=== PATIENT | male | born 1960 | race Caucasian/White ===

== ENCOUNTER 2017-11-01 07:45 | Outpatient (CLI) | payer BC ==
--- NOTE | 2017-11-01 10:19 | ULT ---
ULTRASOUND ABDOMEN COMPLETE: HISTORY: 57-year-old male with elevated liver enzymes. FINDINGS: The gallbladder has normal wall thickness and has no evidence of gallstones or sludge. The hepatic e chogenicity is diffusely increased, consistent with fatty liver. The kidneys have normal echogenicit y, and there is no hydronephrosis. There is no splenomegaly. No free fluid is identified. The infe rior vena cava is visualized. The pancreas and abdominal aorta are obscured by bowel gas. There is no biliary dilation. The common duct caliber is 3 mm. IMPRESSION: 1) Hepatic steatosis. 2) No other pathology identified. 3) Aorta and pancreas are obscured by bowel gas. jn POS: CET
== END 2017-11-01 07:46 | disposition home or self-care (01) ==
LOC: ULT 07:45
PROVIDERS: ATTEND Family Medicine
DX: R74.8 Abnormal levels of other serum enzymes (principal); K76.0 Fatty (change of) liver, not elsewhere classified
CPT/HCPCS: 76700

== ENCOUNTER 2018-01-10 13:18 | Outpatient (CLI) | payer BC ==
--- NOTE | 2018-01-10 14:58 | ULT ---
RENAL ULTRASOUND: HISTORY: Hematuria. COMPARISON: CT abdomen/pelvis 10/02/06. TECHNIQUE: Multiplanar, french scale, and color Doppler images were obtained in a renal ultrasound. FINDINGS: The kidneys are normal in echogenicity without hydronephrosis. There are echogenic foci in the left kidney which do not demonstrate shadowing and may represent an interface between the hilar region, th e kidney, and the cortex. The kidneys measure 11.4 and 13.0 cm in length on the right and left, resp ectively. The urinary bladder is unremarkable. IMPRESSION: No significant renal abnormality. POS: ELSIE
== END 2018-01-10 13:19 | disposition home or self-care (01) ==
LOC: ULT 13:18
PROVIDERS: ATTEND Family Medicine
DX: R31.9 Hematuria, unspecified (principal)
CPT/HCPCS: 76770; 87086

== ENCOUNTER 2021-01-13 10:02 | Outpatient (CLI) | payer BC | END 2021-01-13 10:03 | disposition home or self-care (01) | LOC: BICULT 10:02 | PROVIDERS: ATTEND Family Medicine | DX: R31.29 Other microscopic hematuria (principal) | CPT/HCPCS: 76770 ==

== ENCOUNTER 2021-09-23 10:24 | Outpatient (CLI) | payer BC | END 2021-09-23 10:25 | disposition home or self-care (01) | LOC: BICCT 10:24 | PROVIDERS: ATTEND Urology | DX: R31.29 Other microscopic hematuria (principal); N13.30 Unspecified hydronephrosis; N28.89 Other specified disorders of kidney and ureter | CPT/HCPCS: 74176 ==

== ENCOUNTER 2021-10-06 11:40 | Outpatient (CLI) | payer BC ==
[2021-10-06 14:00] LABS: Anion Gap 13 mmol/L (10-20); BUN (Urea Nitrogen) 21 mg/dL (8.4-25.7); Calc. Creatinine Clearance 0 mL/min (70-130); Calcium 9.4 mg/dL (7.8-10.44); Carbon Dioxide 25 mmol/L (23-31); Chloride 105 mmol/L (98-107); Glucose 87 mg/dL (80-115); Potassium 4.7 mmol/L (3.5-5.1); Sodium 138 mmol/L (136-145)
[2021-10-06 20:33] LABS: SARS-CoV-2 PCR by NAA Not Detected (NotDetected)
== END 2021-10-06 11:41 | disposition home or self-care (01) ==
LOC: LABBT 11:40
PROVIDERS: ATTEND Urology
DX: Z01.818 Encounter for other preprocedural examination (principal); N20.1 Calculus of ureter; Z20.822 Contact with and (suspected) exposure to COVID-19
CPT/HCPCS: 80048; 93005; 93010; U0003; U0005

== ENCOUNTER 2022-11-23 09:00 | Inpatient (IN) | payer BC ==
[2022-11-23 11:02] LABS: Hemoglobin 14.4 g/dL (13.5-17.5); Mean Corpuscular Hemoglobin 28.9 pg (27.0-33.0); Mean Corpuscular Volume 87.6 fl (81.2-95.1); Mean Platelet Volume 10.1 fl (7.4-10.4); Platelet Count 191 10x3/uL (150-450); RBC Distribution Width 14.1 % (11.5-14.5); Red Blood Cell (RBC) Count 4.99 10x6/uL (4.32-5.72)
[2022-11-23 11:13] LABS: Anion Gap 14 mmol/L (10-20); BUN (Urea Nitrogen) 16 mg/dL (8.4-25.7); Calc. Creatinine Clearance 0 mL/min (70-130); Calcium 9.8 mg/dL (7.8-10.44); Carbon Dioxide 25 mmol/L (23-31); Chloride 106 mmol/L (98-107); Estimated GFR 94; Glucose 111 mg/dL (80-115); Potassium 4.8 mmol/L (3.5-5.1); Sodium 140 mmol/L (136-145)
[2022-11-24] MEDS ORDERED: PHENYLEPHRINE-NS 100 MCG/ML 10 ML SYRINGE ONE (06:33)
[2022-11-24] MEDS ORDERED: Albumin 5% 500 ML ONE (06:33)
[2022-11-24] MEDS ORDERED: Heparin 10,000 UNITS/1 ML VIAL 30,000 UNITS in Sodium Chloride 0.9% 1,000 ML FS SCH (07:00)
[2022-11-24] MEDS ORDERED: Midazolam HCl 5 mg/5 ml Vial ONE (07:08)
[2022-11-24] MEDS ORDERED: Aminocaproic Acid 5 GM/20 ML VIAL ONE (07:08)
[2022-11-24] MEDS ORDERED: Insulin Regular 300 UNITS/3 ML VIAL ONE (07:08)
[2022-11-24] MEDS ORDERED: Rocuronium Bromide 50 MG/5 ML VIAL ONE (07:08)
[2022-11-24] MEDS ORDERED: Norepinephrine 4 MG/4 ML VIAL ONE (07:08)
[2022-11-24] MEDS ORDERED: Fentanyl 250 MCG/5 ML VIAL ONE (07:08)
[2022-11-24] MEDS ORDERED: Sodium Chloride 0.9% 100 ML ONE (08:05)
[2022-11-24] MEDS ORDERED: CEFAZOLIN 2 GM VIAL ONE (08:05)
[2022-11-24] MEDS ORDERED: Lidocaine 1% PF 5 ML VIAL ONE (08:40)
[2022-11-24] MEDS ORDERED: Rocuronium Bromide 10 MG/ML (10ML VIAL) ONE (08:40)
[2022-11-24] MEDS ORDERED: PROPOFOL 200 MG/20 ML VIAL ONE (08:40)
[2022-11-24] MEDS ORDERED: Esmolol 100 MG/10 ML VIAL ONE (08:40)
[2022-11-24] MEDS ORDERED: niCARdipine 25 MG/10 ML SDV ONE (09:51)
[2022-11-24 12:25] LABS: Actual Bicarbonate (HCO3a) 22.8 mEq/L (22-28); Base Excess (BEa) -2.6 mEq/L (-2.0 to +3.0); CO2 Tension 41.9 mmHg (35.0-45.0); Calcium, Ionized (arterial) 1.14 mmol/L (1.12-1.30); Hemoglobin (Hb) 15.1 g/dL (14.0-18.0); O2 Tension (PaO2), arterial 80.8 mmHg (> 80.0); Potassium - ABG Lab 5.21 mmol/L (3.70-5.30); pH, Arterial 7.35 (7.35-7.45)
[2022-11-24 12:26] LABS: ALV-art Gradient 294.625 mmHg (0-20); Puncture Site Arterial Line
[2022-11-24] MEDS ORDERED: Nitroglycerin 50 MG/250 ML BOT 250 ML IVPB PRN (13:03)
[2022-11-24] MEDS ORDERED: Bisacodyl 10 MG SUPP PR PRN (13:03)
[2022-11-24] MEDS ORDERED: DOPamine 400 MG/D5W 250 ML 250 ML IVPB PRN (13:03)
[2022-11-24] MEDS ORDERED: hydrALAZINE 20 MG/ML VIAL SLOW IVP PRN (13:03)
[2022-11-24] MEDS ORDERED: Ipratropium/Albuterol 3 ML NEB NEB PRN (13:03)
[2022-11-24] MEDS ORDERED: Guaifenesin DM 100-10/5 ML UDCUP PO PRN (13:03)
[2022-11-24] MEDS ORDERED: NOREPINEPHRINE 8 MG/250 ML-D5W 250 ML IVPB PRN (13:03)
[2022-11-24] MEDS ORDERED: Hetastarch 6% 500 ML 500 ML IVPB PRN (13:03)
[2022-11-24] MEDS ORDERED: fentaNYL 50 mcg/mL 1 mL Vial SLOW IVP PRN ×2 (13:03)
[2022-11-24] MEDS ORDERED: Morphine 2 MG/ML VIAL SLOW IVP PRN (13:03)
[2022-11-24] MEDS ORDERED: Potassium Chloride 20 MEQ/100 ML PREMIX BAG IVPB PRN (13:03)
[2022-11-24] MEDS ORDERED: niCARdipine 25 MG in Sodium Chloride 0.9% 250 ML 250 ML IVPB PRN (13:03)
[2022-11-24] MEDS ORDERED: HYDROcodone/Acetaminophen 5/325 mg Tablet PO PRN (13:03)
[2022-11-24] MEDS ORDERED: Bisacodyl 5 MG TAB PO PRN (13:03)
[2022-11-24] MEDS ORDERED: Promethazine HCl 25 MG/ML VIAL IM PRN (13:03)
[2022-11-24] MEDS ORDERED: Post-Op Insulin Drip Protocol IVPB ONE (13:03)
[2022-11-24] MEDS ORDERED: Ondansetron PF 4 MG/2 ML Vial IVP PRN (13:03)
[2022-11-24] MEDS ORDERED: Mag-Al 1200 mg/1200 mg/30 ML UDCUP PO PRN (13:03)
[2022-11-24] MEDS ORDERED: Dextrose 5% in Water 1,000 ML IV PRN (13:15)
[2022-11-24] MEDS ORDERED: Dextrose 50% Abboject 50 ML SYRINGE SLOW IVP PRN (13:15)
[2022-11-24] MEDS ORDERED: Insulin Regular 300 UNITS/3 ML VIAL SC PRN (13:15)
[2022-11-24] MEDS: Lactated Ringer's 1,000 ML IV SCH (13:19)
[2022-11-24] MEDS: HUMULIN R 100 UNITS in Sodium Chloride 0.9% 100 ML IVPB SCH ×2 (13:28→13:42)
[2022-11-24] MEDS: Ketorolac Tromethamine 30 MG/ML VIAL IVP SCH ×3 (13:45→23:05)
[2022-11-24 14:06] LABS: #Eosinphils 0.1 thou/uL (0.0-0.7); #Lymphocytes 1.5 thou/uL (1.20-3.40); #Monocytes 1.4 thou/uL (0.11-0.59); #Neutrophils 15.1 thou/uL (1.40-6.50); %Basophils 0.2 % (0.0-1.0); %Eosinophils 0.4 % (0.0-10.0); %Lymphocytes 8.2 % (21.0-51.0); %Monocytes 7.5 % (0.0-10.0); %Neutrophils 83.7 % (42.0-75.0); Hemoglobin 14.5 g/dL (14.0-18.0); Mean Corpuscular HGB CONC 33.5 g/dL (32.0-36.0); Mean Corpuscular Hemoglobin 30.1 pg (27.0-31.0); Mean Corpuscular Volume 89.8 fl (78.0-98.0); Mean Platelet Volume 8.4 fL (7.4-10.4); Platelet Count 108 10x3/uL (130-400); RBC Distribution Width 13.5 % (11.5-14.5); Red Blood Cell (RBC) Count 4.83 mill/uL (4.70-6.10); White Blood Cell (WBC) Count 18.1 10x3/uL (4.8-10.8)
[2022-11-24 14:08] LABS: INR-International Normal Ratio 1.3; PTT 23.9 sec (22.9-36.1); Prothrombin Time 16.4 sec (12.0-14.7)
[2022-11-24 14:17] LABS: Anion Gap 14 mmol/L (10-20); BUN (Urea Nitrogen) 12 mg/dL (8.4-25.7); Calc. Creatinine Clearance 117 mL/min (70-130); Calcium 8.1 mg/dL (7.8-10.44); Carbon Dioxide 21 mmol/L (23-31); Chloride 109 mmol/L (98-107); Estimated GFR 98; Glucose 197 mg/dL (80-115); Potassium 5.3 mmol/L (3.5-5.1); Sodium 139 mmol/L (136-145)
[2022-11-24 14:37] LABS: Platelet Morphology Comment Appears Decreased; RBC Morphology Normal
[2022-11-24] MEDS: CEFAZOLIN 2 GM in Sodium Chloride 0.9% 100 ML IVPB SCH ×2 (15:45→23:06)
[2022-11-24 16:39] LABS: Actual Bicarbonate (HCO3a) 20.8 mEq/L (22-28); Base Excess (BEa) -2.3 mEq/L (-2.0 to +3.0); CO2 Tension 31.3 mmHg (35.0-45.0); Calcium, Ionized (arterial) 1.14 mmol/L (1.12-1.30); Carboxyhemoglobin (COHb) 0.5 gm% (0.0-3.0); Hemoglobin (Hb) 14.3 g/dL (14.0-18.0); O2 Tension (PaO2), arterial 163.4 mmHg (> 80.0); Potassium - ABG Lab 4.01 mmol/L (3.70-5.30); pH, Arterial 7.44 (7.35-7.45)
[2022-11-24 16:42] LABS: ALV-art Gradient 82.675 mmHg (0-20); Puncture Site Arterial Line
[2022-11-24] MEDS: HYDROcodone/Acetaminophen 5/325 mg Tablet PO PRN (19:48)
[2022-11-24] MEDS: Rosuvastatin 20 MG TAB PO SCH (20:00)
[2022-11-24] MEDS: Famotidine/PF 20 mg/2ml Vial SLOW IVP SCH (20:00)
[2022-11-24 21:03] LABS: Hemoglobin 12.9 g/dL (14.0-18.0)
[2022-11-25] MEDS: HYDROcodone/Acetaminophen 5/325 mg Tablet PO PRN ×4 (00:33→19:19)
[2022-11-25] MEDS: Lactated Ringer's 1,000 ML IV SCH (03:25)
[2022-11-25 05:08] LABS: #Lymphocytes 1.4 thou/uL (1.20-3.40); #Monocytes 1.3 thou/uL (0.11-0.59); #Neutrophils 8.5 thou/uL (1.40-6.50); %Basophils 0.2 % (0.0-1.0); %Lymphocytes 12.7 % (21.0-51.0); %Monocytes 11.6 % (0.0-10.0); %Neutrophils 75.5 % (42.0-75.0); Hemoglobin 11.5 g/dL (14.0-18.0); Mean Corpuscular Hemoglobin 30.8 pg (27.0-31.0); Mean Corpuscular Volume 90.4 fl (78.0-98.0); Mean Platelet Volume 8.4 fL (7.4-10.4); Platelet Count 101 10x3/uL (130-400); RBC Distribution Width 13.5 % (11.5-14.5); Red Blood Cell (RBC) Count 3.74 mill/uL (4.70-6.10); White Blood Cell (WBC) Count 11.3 10x3/uL (4.8-10.8)
[2022-11-25 05:24] LABS: Anion Gap 12 mmol/L (10-20); BUN (Urea Nitrogen) 16 mg/dL (8.4-25.7); Calc. Creatinine Clearance 0 mL/min (70-130); Calcium 8.1 mg/dL (7.8-10.44); Carbon Dioxide 24 mmol/L (23-31); Chloride 111 mmol/L (98-107); Estimated GFR 100; Glucose 120 mg/dL (80-115); Sodium 143 mmol/L (136-145)
[2022-11-25] MEDS: Ketorolac Tromethamine 30 MG/ML VIAL IVP SCH ×3 (06:20→18:20)
[2022-11-25] MEDS: Aspirin Chewable 81 MG TAB PO SCH (08:16)
[2022-11-25] MEDS: Famotidine/PF 20 mg/2ml Vial SLOW IVP SCH (08:16)
[2022-11-25] MEDS: Polyethylene Glycol 3350 17 GM Packet PO SCH (08:17)
[2022-11-25] MEDS: Magnesium 2 GM/50 ML(in water) 2 GM in Premix Bag 1 BAG IVPB SCH (08:17)
[2022-11-25] MEDS: CEFAZOLIN 2 GM in Sodium Chloride 0.9% 100 ML IVPB SCH (08:25)
[2022-11-25] MEDS ORDERED: Dextrose 50% Abboject 50 ML SYRINGE SLOW IVP PRN (10:52)
[2022-11-25] MEDS ORDERED: Dextrose 5% in Water 1,000 ML IV PRN (10:52)
[2022-11-25] MEDS ORDERED: Insulin Glargine 30 UNITS/0.3 ML VIAL SC PRN (13:10)
[2022-11-25] MEDS: metFORMIN 500 MG TAB PO SCH (18:20)
[2022-11-25] MEDS: HumaLOG 300 UNITS/3 ML VIAL SC PRN ×2 (18:25→20:29)
[2022-11-25] MEDS: Rosuvastatin 20 MG TAB PO SCH (20:16)
[2022-11-25] MEDS: Alogliptin 25 MG TAB PO SCH (20:16)
[2022-11-25] MEDS: glipiZIDE 5 MG TAB PO SCH (20:16)
[2022-11-26] MEDS: Ketorolac Tromethamine 30 MG/ML VIAL IVP SCH ×5 (00:21→23:29)
[2022-11-26] MEDS: Amiodarone 450 MG, Admixture Fee 1 EACH in Dextrose 5% in Water 250 ML IVPB SCH ×3 (02:14→22:24)
[2022-11-26] MEDS: Acetaminophen 325 MG TAB PO PRN (02:28)
[2022-11-26 04:09] LABS: #Monocytes 1.4 thou/uL (0.11-0.59); #Neutrophils 10.4 thou/uL (1.40-6.50); %Basophils 0.2 % (0.0-1.0); %Eosinophils 0.2 % (0.0-10.0); %Lymphocytes 14.2 % (21.0-51.0); %Monocytes 10.1 % (0.0-10.0); %Neutrophils 75.3 % (42.0-75.0); Hemoglobin 12.4 g/dL (14.0-18.0); Mean Corpuscular HGB CONC 34.6 g/dL (32.0-36.0); Mean Corpuscular Hemoglobin 31.4 pg (27.0-31.0); Mean Corpuscular Volume 90.6 fl (78.0-98.0); Platelet Count 89 10x3/uL (130-400); RBC Distribution Width 13.5 % (11.5-14.5); Red Blood Cell (RBC) Count 3.94 mill/uL (4.70-6.10); White Blood Cell (WBC) Count 13.8 10x3/uL (4.8-10.8)
[2022-11-26 04:27] LABS: Anion Gap 10 mmol/L (10-20); BUN (Urea Nitrogen) 18 mg/dL (8.4-25.7); Calc. Creatinine Clearance 118 mL/min (70-130); Calcium 8.6 mg/dL (7.8-10.44); Carbon Dioxide 26 mmol/L (23-31); Chloride 107 mmol/L (98-107); Estimated GFR 100; Glucose 154 mg/dL (80-115); Potassium 4.1 mmol/L (3.5-5.1); Sodium 139 mmol/L (136-145)
[2022-11-26] MEDS: HumaLOG 300 UNITS/3 ML VIAL SC PRN ×4 (06:29→20:11)
[2022-11-26] MEDS: HYDROcodone/Acetaminophen 5/325 mg Tablet PO PRN ×2 (08:16→14:25)
[2022-11-26] MEDS: Magnesium 2 GM/50 ML(in water) 2 GM in Premix Bag 1 BAG IVPB SCH (08:16)
[2022-11-26] MEDS: Polyethylene Glycol 3350 17 GM Packet PO SCH (08:18)
[2022-11-26] MEDS: metFORMIN 500 MG TAB PO SCH ×2 (08:18→17:43)
[2022-11-26] MEDS: Aspirin Chewable 81 MG TAB PO SCH (08:18)
[2022-11-26] MEDS ORDERED: diphenhydrAMINE 25 MG CAP PO PRN (08:54)
[2022-11-26] MEDS ORDERED: Milk Of Magnesia 30 ML UDCUP PO PRN (08:54)
[2022-11-26] MEDS ORDERED: Mineral Oil ENEMA PR PRN (08:54)
[2022-11-26] MEDS ORDERED: Nitroglycerin 0.4 MG TAB (25 Tab Bottle) SL PRN (08:54)
[2022-11-26] MEDS ORDERED: Zolpidem Tartrate 5 MG TAB PO PRN (08:54)
[2022-11-26] MEDS: Alogliptin 25 MG TAB PO SCH (20:03)
[2022-11-26] MEDS: Rosuvastatin 20 MG TAB PO SCH (20:03)
[2022-11-26] MEDS: glipiZIDE 5 MG TAB PO SCH (20:03)
[2022-11-27 04:19] LABS: #Lymphocytes 1.7 thou/uL (1.20-3.40); #Neutrophils 9.8 thou/uL (1.40-6.50); %Basophils 0.1 % (0.0-1.0); %Eosinophils 0.3 % (0.0-10.0); %Lymphocytes 13.4 % (21.0-51.0); %Neutrophils 78.2 % (42.0-75.0); Hemoglobin 10.9 g/dL (14.0-18.0); Mean Corpuscular HGB CONC 33.6 g/dL (32.0-36.0); Mean Corpuscular Hemoglobin 30.4 pg (27.0-31.0); Mean Corpuscular Volume 90.6 fl (78.0-98.0); Mean Platelet Volume 8.1 fL (7.4-10.4); Platelet Count 102 10x3/uL (130-400); RBC Distribution Width 13.3 % (11.5-14.5); Red Blood Cell (RBC) Count 3.59 mill/uL (4.70-6.10); White Blood Cell (WBC) Count 12.6 10x3/uL (4.8-10.8)
[2022-11-27 04:35] LABS: Anion Gap 11 mmol/L (10-20); BUN (Urea Nitrogen) 23 mg/dL (8.4-25.7); Calc. Creatinine Clearance 118 mL/min (70-130); Calcium 8.3 mg/dL (7.8-10.44); Carbon Dioxide 24 mmol/L (23-31); Chloride 103 mmol/L (98-107); Estimated GFR 100; Glucose 136 mg/dL (80-115); Potassium 3.7 mmol/L (3.5-5.1); Sodium 134 mmol/L (136-145)
[2022-11-27] MEDS: Ketorolac Tromethamine 30 MG/ML VIAL IVP SCH (06:14)
[2022-11-27] MEDS: metFORMIN 500 MG TAB PO SCH (08:15)
[2022-11-27] MEDS: Polyethylene Glycol 3350 17 GM Packet PO SCH (08:15)
[2022-11-27] MEDS: Aspirin Chewable 81 MG TAB PO SCH (08:15)
[2022-11-27] MEDS ORDERED: Amiodarone 450 MG, Admixture Fee 1 EACH in Dextrose 5% in Water 250 ML IVPB SCH (08:21)
[2022-11-27] MEDS: Amiodarone 200 MG TAB PO SCH ×2 (08:35→21:17)
[2022-11-27] MEDS ORDERED: Amiodarone 200 MG TAB PO SCH (09:00)
[2022-11-27] MEDS: Alogliptin 25 MG TAB PO SCH (21:15)
[2022-11-27] MEDS: Rosuvastatin 20 MG TAB PO SCH (21:16)
[2022-11-27] MEDS: glipiZIDE 5 MG TAB PO SCH (21:17)
[2022-11-27] MEDS: HumaLOG 300 UNITS/3 ML VIAL SC PRN (21:25)
[2022-11-28] MEDS: HYDROcodone/Acetaminophen 5/325 mg Tablet PO PRN (05:15)
[2022-11-28] MEDS ORDERED: Furosemide 40 MG TAB PO SCH (07:30)
[2022-11-28] MEDS ORDERED: Potassium Chloride 10 MEQ TAB PO SCH (08:00)
[2022-11-28] MEDS: Polyethylene Glycol 3350 17 GM Packet PO SCH (08:04)
[2022-11-28] MEDS: metFORMIN 500 MG TAB PO SCH (08:05)
[2022-11-28] MEDS: Aspirin Chewable 81 MG TAB PO SCH (08:05)
[2022-11-28] MEDS: Amiodarone 200 MG TAB PO SCH ×2 (08:05→21:56)
[2022-11-28 15:55] VITALS: BP 141/71
[2022-11-28] MEDS ORDERED: Metoprolol Tartrate 25 MG TAB PO SCH (21:00)
[2022-11-28] MEDS: Rosuvastatin 20 MG TAB PO SCH (21:55)
[2022-11-28] MEDS: Alogliptin 25 MG TAB PO SCH (21:55)
[2022-11-28] MEDS: Acetaminophen 325 MG TAB PO PRN (21:55)
[2022-11-28] MEDS: glipiZIDE 5 MG TAB PO SCH (21:56)
[2022-11-29 08:13] VITALS: TEMP 98.6
[2022-11-29 11:44] LABS: Actual Bicarbonate (HCO3a) 21.6 mEq/L (22-28); Analyzer IN Cardio OR; Base Excess (BEa) -2.9 mEq/L (-2.0 to +3.0); CO2 Tension 36.9 mmHg (35.0-45.0); Calcium, Ionized (arterial) 1.18 mmol/L (1.12-1.30); Carboxyhemoglobin (COHb) 0.5 gm% (0.0-3.0); Hemoglobin (Hb) 13.9 g/dL (14.0-18.0); Potassium - ABG Lab 4.52 mmol/L (3.70-5.30); pH, Arterial 7.39 (7.35-7.45)
[2022-11-29 11:44] LABS: Actual Bicarbonate (HCO3a) 25.8 mEq/L (22-28); Analyzer IN Cardio OR; Base Excess (BEa) -1.3 mEq/L (-2.0 to +3.0); Calcium, Ionized (arterial) 1.03 mmol/L (1.12-1.30); Carboxyhemoglobin (COHb) 0.3 gm% (0.0-3.0); Hemoglobin (Hb) 10.6 g/dL (14.0-18.0); O2 Tension (PaO2), arterial 363.4 mmHg (> 80.0); pH, Arterial 7.29 (7.35-7.45)
[2022-11-29 11:44] LABS: Actual Bicarbonate (HCO3a) 20.9 mEq/L (22-28); Analyzer IN Cardio OR; Base Excess (BEa) -3.8 mEq/L (-2.0 to +3.0); CO2 Tension 36.8 mmHg (35.0-45.0); Calcium, Ionized (arterial) 1.14 mmol/L (1.12-1.30); Carboxyhemoglobin (COHb) 0.2 gm% (0.0-3.0); Hemoglobin (Hb) 13.5 g/dL (14.0-18.0); O2 Tension (PaO2), arterial 330.9 mmHg (> 80.0); pH, Arterial 7.37 (7.35-7.45)
[2022-11-29 11:45] LABS: Actual Bicarbonate (HCO3a) 23.2 mEq/L (22-28); Analyzer IN Cardio OR; Base Excess (BEa) -2.5 mEq/L (-2.0 to +3.0); CO2 Tension 44.1 mmHg (35.0-45.0); Calcium, Ionized (arterial) 1.03 mmol/L (1.12-1.30); Carboxyhemoglobin (COHb) 0.3 gm% (0.0-3.0); Hemoglobin (Hb) 10.5 g/dL (14.0-18.0); O2 Tension (PaO2), arterial 333.3 mmHg (> 80.0); pH, Arterial 7.34 (7.35-7.45)
[2022-11-29 11:46] LABS: Puncture Site Arterial Line
[2022-11-29 11:46] LABS: Actual Bicarbonate (HCO3a) 22.9 mEq/L (22-28); Analyzer IN Cardio OR; Base Excess (BEa) -1.8 mEq/L (-2.0 to +3.0); CO2 Tension 38.9 mmHg (35.0-45.0); Calcium, Ionized (arterial) 1.13 mmol/L (1.12-1.30); Carboxyhemoglobin (COHb) 0.3 gm% (0.0-3.0); Hemoglobin (Hb) 10.4 g/dL (14.0-18.0); O2 Tension (PaO2), arterial 131.5 mmHg (> 80.0); Potassium - ABG Lab 5.85 mmol/L (3.70-5.30); pH, Arterial 7.39 (7.35-7.45)
[2022-11-29 11:46] LABS: Actual Bicarbonate (HCO3a) 19.9 mEq/L (22-28); Analyzer IN Cardio OR; Base Excess (BEa) -5.1 mEq/L (-2.0 to +3.0); CO2 Tension 36.7 mmHg (35.0-45.0); Calcium, Ionized (arterial) 1.17 mmol/L (1.12-1.30); Carboxyhemoglobin (COHb) 0.6 gm% (0.0-3.0); Hemoglobin (Hb) 14.6 g/dL (14.0-18.0); O2 Tension (PaO2), arterial 82.6 mmHg (> 80.0); Potassium - ABG Lab 5.17 mmol/L (3.70-5.30); pH, Arterial 7.35 (7.35-7.45)
[2022-11-29 11:47] LABS: Puncture Site Arterial Line
[2022-11-29 11:48] LABS: Potassium - ABG Lab 6.72 mmol/L (3.70-5.30); Puncture Site Arterial Line
[2022-11-29 11:51] LABS: Potassium - ABG Lab 7.04 mmol/L (3.70-5.30); Puncture Site Arterial Line
[2022-11-29 11:51] LABS: Puncture Site Arterial Line
[2022-11-29 11:52] LABS: Puncture Site Arterial Line
== END 2022-11-29 08:20 | disposition home or self-care (01) | DRG 236 ==
LOC: SURG A 11-24 06:28 → CCU 11-24 11:59
PROVIDERS: ADMIT Thoracic Surgery (Cardiothoracic Vascular Surgery); ATTEND Thoracic Surgery (Cardiothoracic Vascular Surgery)
PROC: 02100Z9 Bypass Coronary Artery, One Artery from Left Internal Mammary, Open Approach (ICD-10-PCS; principal; 2022-11-24)
PROC: 021109W Bypass Coronary Artery, Two Arteries from Aorta with Autologous Venous Tissue, Open Approach (ICD-10-PCS; 2022-11-24)
PROC: 06BQ0ZZ Excision of Left Saphenous Vein, Open Approach (ICD-10-PCS; 2022-11-24)
PROC: 5A1221Z Performance of Cardiac Output, Continuous (ICD-10-PCS; 2022-11-24)
PROC: 02L70CK Occlusion of Left Atrial Appendage with Extraluminal Device, Open Approach (ICD-10-PCS; 2022-11-24)
PROC: 4A133R1 Monitoring of Arterial Saturation, Peripheral, Percutaneous Approach (ICD-10-PCS; 2022-11-24)
PROC: 30233J1 Transfusion of Nonautologous Serum Albumin into Peripheral Vein, Percutaneous Approach (ICD-10-PCS; 2022-11-24)
PROC: 3E033XZ Introduction of Vasopressor into Peripheral Vein, Percutaneous Approach (ICD-10-PCS; 2022-11-24)
DX: I25.10 Atherosclerotic heart disease of native coronary artery without angina pectoris (principal); E11.9 Type 2 diabetes mellitus without complications; I10 Essential (primary) hypertension; E78.5 Hyperlipidemia, unspecified; K21.9 Gastro-esophageal reflux disease without esophagitis; G47.30 Sleep apnea, unspecified; K59.00 Constipation, unspecified; I48.0 Paroxysmal atrial fibrillation; E78.2 Mixed hyperlipidemia; Z98.41 Cataract extraction status, right eye; Z98.42 Cataract extraction status, left eye; Z82.49 Family history of ischemic heart disease and other diseases of the circulatory system; Z98.890 Other specified postprocedural states; Z79.84 Long term (current) use of oral hypoglycemic drugs; Z79.82 Long term (current) use of aspirin
CPT/HCPCS: 36415; 36416; 36430; 71045; 80048; 82805; 85025; 85027; 85610; 85730; 86850; 86900; 86901; 93005; 93010; 93798; 94002; 94150; C1713; C1751; C1776; J0282; J0360; J1642; J1815; J1885; J2250; J2272; J2704; J3010; J3475; J3490; J7070; J7120; P9045; S0017; S0028